=== PATIENT | male | born 1960 | race Caucasian/White ===

== ENCOUNTER 2017-08-18 10:32 | Emergency (ER) | payer SELFPAY ==
[2017-08-18 10:38] VITALS: BP 158/89; PULSE 92; RESP 20; TEMP 99.9; O2SAT 97
[2017-08-18] MEDS ORDERED: HYDR-3580 PO (10:43)
[2017-08-18] MEDS ORDERED: METF1000 PO (10:43)
[2017-08-18] MEDS ORDERED: LEVO100T5 PO (10:43)
[2017-08-18] MEDS ORDERED: DOXY100C PO (10:43)
[2017-08-18 10:58] VITALS: BP 137/75; PULSE 91; RESP 18; O2SAT 95
[2017-08-18] MEDS ORDERED: VANCOMYCIN INJ 1,000 MG in SODIUM CHLOR 0.9% 250 ML INJ 250 ML IV STA (11:25)
[2017-08-18] MEDS ORDERED: PIPERACIL-TAZO 4.5 GM PREMIX 100 ML IV STA (11:25)
[2017-08-18] MEDS ORDERED: ONDANSETRON HCL 4 MG/2 ML VIAL IV PUSH ONE (11:30)
[2017-08-18] MEDS ORDERED: MORPHINE SULFATE 2 MG/ML SYRINGE IV PUSH ONE (11:30)
--- NOTE | 2017-08-18 11:36 | PD ---
HPI Chief Complaint: Skin Problem Time Seen by Provider: 11:20 Travel History International Travel<30 days: No Contact w/Intl Traveler<30days: No Traveled to known affect area: No History of Present Illness HPI Patient comes emergency department complaining of worsening abscess over his thoracic spine. Patient reports that after this began approximately a week ago. Patient reports he went to urgent care 2 days ago had an I&D was started on doxycycline and Superior. Patient states he went back today for recheck and was sent to the emergency department for further treatment and evaluation. Patient reports temperature at home 99.9. Pain is throbbing/pressure pain over the abscess that is worse palpation. Denies anything making it better. Denies any radiation of pain. Severity moderate. PFSH Past Medical History Diabetes: Yes Patient Takes Glucophage: Yes Thyroid Disease: Yes (HYPO) Tetanus Vaccination: < 5 Years Past Surgical History Other Surgery: Yes (LEFT STEAL PLATE TO ARM, SCREWS/RODS LEFT ARM) Social History Alcohol Use: Yes Tobacco Use: Yes Substance Use: No Allergies-Medications (Allergen,Severity, Reaction): Coded Allergies: No Known Allergies (Unverified , 08/18/17) Reported Meds & Prescriptions Reported Meds & Active Scripts Active Bactrim DS (Sulfamethoxazole-Trimethoprim) 800-160 Mg Tab 1 Tab PO BID Reported Hydrocodone-Acetamin 7.5-325 (Hydrocodone/Acetaminophen) 7.5 Mg-325 Mg Tablet 1 Tab PO Q6HR PRN Levothyroxine (Levothyroxine Sodium) 100 Mcg Tab 100 Mcg PO DAILY Doxycycline Hyclate 100 Mg Cap 100 Mg PO BID Metformin (Metformin HCl) 1,000 Mg Tab 1,000 Mg PO BIDPC Review of Systems Except as stated in HPI: all other systems reviewed are Neg Physical Exam Narrative GENERAL: Well-developed, overly nourished, in no acute distress, and non-ill appearing. SKIN: Approximately 8 cm x 8 cm cellulitis with abscess area noted over the midthoracic spine with scant drainage noted. Is febrile, tender, erythematous, and fluctuation is noted. There is no crepitus. HEAD: Atraumatic. Normocephalic. EYES: Pupils equal and round. EOMI. No scleral icterus. No injection or drainage. ENT: No nasal bleeding or discharge. Mucous membranes pink and moist. NECK: Trachea midline. Supple. No nuclear rigidity. CARDIOVASCULAR: Regular rate and rhythm. No murmur appreciated. RESPIRATORY: No accessory muscle use. No respiratory distress. Clear to auscultation. Breath sounds equal bilaterally. MUSCULOSKELETAL: No obvious deformities. No clubbing. No cyanosis. No edema. Full range of motion. NEUROLOGICAL: Awake and alert. No obvious cranial nerve deficits. Motor grossly within normal limits. Normal speech. PSYCHIATRIC: Appropriate mood and affect; insight and judgment normal. Data Data Last Documented VS Vital Signs Date Time Temp Pulse Resp B/P (MAP) Pulse Ox O2 Delivery O2 Flow Rate FiO2 08/18/17 14:49 08/18/17 10:58 91 18 95 Room Air 08/18/17 10:38 99.9 Orders Orders Complete Blood Count With Diff (08/18/17 11:25) Comprehensive Metabolic Panel (08/18/17 11:25) Prothrombin Time / Inr (Pt) (08/18/17 11:25) Act Partial Throm Time (Ptt) (08/18/17 11:25) Lactic Acid Sepsis Protocol (08/18/17 11:25) Blood Culture (08/18/17 11:25) Wound Culture And Gram Stain (08/18/17 11:25) Ecg Monitoring (08/18/17 11:25) Iv Access Insert/Monitor (08/18/17 11:25) Oximetry (08/18/17 11:25) Piperacil-Tazo 4.5 Gm Premix (Zosyn 4.5 (08/18/17 11:25) Vancomycin Inj (Vancomycin Inj) (08/18/17 11:25) Us Soft Tissue (08/18/17 ) Ondansetron Inj (Zofran Inj) (08/18/17 11:30) Morphine Inj (Morphine Inj) (08/18/17 11:30) Morphine Inj (Morphine Inj) (08/18/17 13:15) Lidocai-Epi 1%-1:100,000 Inj (Xylocaine- (08/18/17 13:15) Ed Discharge Order (08/18/17 13:48) Wound Culture And Gram Stain (08/18/17 13:48) Labs Laboratory Tests Test 08/18/17 12:02 08/18/17 12:07 White Blood Count 15.3 TH/MM3 Red Blood Count 4.43 MIL/MM3 Hemoglobin 13.5 GM/DL Hematocrit 38.7 % Mean Corpuscular Volume 87.3 FL Mean Corpuscular Hemoglobin 30.5 PG Mean Corpuscular Hemoglobin Concent 34.9 % Red Cell Distribution Width 13.0 % Platelet Count 324 TH/MM3 Mean Platelet Volume 8.0 FL Neutrophils (%) (Auto) 79.7 % Lymphocytes (%) (Auto) 9.7 % Monocytes (%) (Auto) 9.5 % Eosinophils (%) (Auto) 0.7 % Basophils (%) (Auto) 0.4 % Neutrophils # (Auto) 12.2 TH/MM3 Lymphocytes # (Auto) 1.5 TH/MM3 Monocytes # (Auto) 1.5 TH/MM3 Eosinophils # (Auto) 0.1 TH/MM3 Basophils # (Auto) 0.1 TH/MM3 CBC Comment DIFF FINAL Differential Comment Lactic Acid Level 1.7 mmol/L Prothrombin Time 11.7 SEC Prothromb Time International Ratio 1.2 RATIO Activated Partial Thromboplast Time 31.2 SEC Blood Urea Nitrogen 13 MG/DL Creatinine 0.72 MG/DL Random Glucose 253 MG/DL Total Protein 7.2 GM/DL Albumin 2.8 GM/DL Calcium Level 8.9 MG/DL Alkaline Phosphatase 74 U/L Aspartate Amino Transf (AST/SGOT) 16 U/L Alanine Aminotransferase (ALT/SGPT) 31 U/L Total Bilirubin 0.6 MG/DL Sodium Level 133 MEQ/L Potassium Level 3.7 MEQ/L Chloride Level 95 MEQ/L Carbon Dioxide Level 29.1 MEQ/L Anion Gap 9 MEQ/L Estimat Glomerular Filtration Rate 112 ML/MIN [facility] Medical Decision Making Medical Screen Exam Complete: Yes Emergency Medical Condition: Yes Interpretation(s) Last Impressions Soft Tissue Ultrasound 08/18/17 0000 Signed Impressions: Service Date/Time: August 11:36 - CONCLUSION: Complex collection consistent with the known abscess. Syd Chou MD Differential Diagnosis Abscess, cellulitis, failed outpatient therapy, folliculitis, infected sebaceous cyst Narrative Course There is no evidence of necrotizing fasciitis at this time. The patient will be discharged on antibiotics. The patient was given signs and symptoms warnings for worsening infection, such as spreading of redness, increasing pain, and/or swelling, associated heat, or fever or feels worse, and instructed to return immediately if these signs or symptoms worsen. The patient is to return in 2 days for recheck. Sooner if worsens or as needed. The patient agrees with plan. Patient in no obvious distress upon re-evaluation. All pertinent laboratory/ Radiology result(s) discussed with patient/family. Patient was offered admission but has declined. Discussed patient with Dr. Delgadillo prior discharge, who is in agreement with plan of care and disposition. Patient was asked if they wanted to speak to my attending, which the patient did not wish to do at this time. Any questions/concerns in reference to patient diagnosis/ condition discussed and clarified prior to patient's discharge. Reinforced sheer importance of close follow up with patient's primary physician or primary care clinic and return here in 2 days for recheck. Instructed patient to return to ED immediately, if symptoms return/worsen. Patient showed understanding of above instructions. Further instructions and recommendations were detailed in discharge paperwork. Patient ambulated without difficulty out of ED at discharge. Procedures Procedure Narrative INCISION AND DRAINAGE OF ABSCESS: Verbal consent was obtained. The area was prepped. A subcutaneous wheal of 1% Xylocaine with epi with a total number 2 mL was used to anesthetize the area. The area was properly anesthetized. A number 11 scalpel was used to make a 1-cm incision across the area of the abscess. The abscess was drained and irrigated with normal saline. Quarter inch iodoform packing was placed in the wound. Sterile dressing applied by nurse. Patient tolerated procedure well. Patient advised to return here in 2 days to have packing removed and wound rechecked. Patient verbalized understanding. Diagnosis Primary Impression: Cellulitis and abscess of trunk Patient Instructions: Abscess (GEN), Abscess Incision and Drainage (DC), Cellulitis (ED), General Instructions Additional Instructions: Follow-up with your primary care physician or return here in 2 days for recheck. Take all medication as prescribed today along with doxycycline and hydrocodone you were previously prescribed. Apply warm compresses to affected area to continue facilitating drainage. Return to the emergency department if symptoms get worse. Med/Other Pt SpecificInfo: Prescription(s) given Scripts Sulfamethoxazole-Trimethoprim (Bactrim DS) 800-160 Mg Tab 1 TAB PO BID for Infection, #20 TAB 0 Refills Prov: Juan C Delgadillo MD 08/18/17 Disposition: DISCHARGE HOME Condition: Stable Michael Thomas August 18, 2017 11:36
--- NOTE | 2017-08-18 12:12 | RADRPT ---
EXAM DATE/TIME: 08/18/2017 11:36 [facility] COMPARISON: No previous studies available for comparison. INDICATIONS : Patient with back pain, redness and swelling. Patient is status post drain placement yesterday.. MEDICAL HISTORY : Hypothyroidism. Diabetes. SURGICAL HISTORY : Left arm surgery. ENCOUNTER: Initial ACUITY: 3 days PAIN SCORE: 8/10 LOCATION: Back AREA EVALUATED: Center back. FINDINGS: A targeted ultrasound examination was performed along the center of the back in the area of clinical concern. There is a complex hypoechoic collection measuring 2.5 x 2.1 x 1.9 cm. A this demonstrated n o color flow. There is cystic and hyperechoic areas. CONCLUSION: Complex collection consistent with the known abscess. Syd Chou MD on August 18, 2017 at 12:07 Board Certified Radiologist. This report was verified electronically.
[2017-08-18 12:35] LABS: AUTOMATED NEUTROPHIL # 12.2 TH/MM3 (1.8-7.7); BASOPHIL # 0.1 TH/MM3 (0-0.2); BASOPHIL % 0.4 % (0.0-2.0); EOSINOPHIL # 0.1 TH/MM3 (0-0.4); EOSINOPHIL % 0.7 % (0.0-4.0); HEMATOCRIT 38.7 % (39.0-51.0); HEMOGLOBIN 13.5 GM/DL (13.0-17.0); LYMPH % 9.7 % (9.0-44.0); LYMPHOCYTE # 1.5 TH/MM3 (1.0-4.8); MEAN CELL VOLUME 87.3 FL (80.0-100.0); MEAN CORPUSCULAR HEMOGLOBIN 30.5 PG (27.0-34.0); MEAN CORPUSCULAR HGB CONC 34.9 % (32.0-36.0); MONO % 9.5 % (0.0-8.0); MONOCYTE # 1.5 TH/MM3 (0-0.9); NEUT % 79.7 % (16.0-70.0); PLATELET COUNT 324 TH/MM3 (150-450); RED BLOOD COUNT 4.43 MIL/MM3 (4.50-5.90); WHITE BLOOD COUNT 15.3 TH/MM3 (4.0-11.0)
[2017-08-18 12:43] LABS: INTERNATIONAL NORMALIZED RATIO 1.2 RATIO; PROTHROMBIN TIME - PATIENT 11.7 SEC (9.8-11.6)
[2017-08-18 12:50] LABS: ALBUMIN 2.8 GM/DL (3.4-5.0); ALT (GPT) 31 U/L (12-78); AST (GOT) 16 U/L (15-37); BICARBONATE 29.1 MEQ/L (21.0-32.0); BLOOD UREA NITROGEN 13 MG/DL (7-18); CALCIUM 8.9 MG/DL (8.5-10.1); CHLORIDE 95 MEQ/L (98-107); CREATININE 0.72 MG/DL (0.60-1.30); GLOMERULAR FILTRATION RATE 112 ML/MIN (>89); GLUCOSE,RANDOM 253 MG/DL (74-106); SODIUM (NA) 133 MEQ/L (136-145)
[2017-08-18 12:51] LABS: ALKALINE PHOSPHATASE 74 U/L (45-117); TOTAL BILIRUBIN ADULT 0.6 MG/DL (0.2-1.0); TOTAL PROTEIN 7.2 GM/DL (6.4-8.2)
[2017-08-18] MEDS ORDERED: MORPHINE SULFATE 4 MG/ML INJ IV PUSH ONE (13:15)
[2017-08-18] MEDS ORDERED: LIDOCAINE 1%/EPINEPHrine 1:100,000 SOLN 20 ML VIAL INFIL ONE (13:15)
[2017-08-18] MEDS ORDERED: BACT800T5 PO (13:49)
== END 2017-08-18 15:09 | disposition home or self-care (01) ==
LOC: NEPE 10:32
DX: L02.212 Cutaneous abscess of back [any part, except buttock and flank] (principal); E03.9 Hypothyroidism, unspecified; E11.9 Type 2 diabetes mellitus without complications; Z72.0 Tobacco use; Z79.84 Long term (current) use of oral hypoglycemic drugs
CPT/HCPCS: 10060; 76999; 80053; 83605; 85025; 85610; 85730; 87040; 87070; 87185; 96365; 96368; 96375; 96376; 99284; J2270; J2405; J2543; J3370; J7050; 87205

== ENCOUNTER 2017-08-20 09:53 | Emergency (ER) | payer SELFPAY ==
[~2017-08-20] VITALS: Ht 177.8 cm; Wt 90.0 kg
[~2017-08-20 09:53] MED LIST: BACT800T5 PO; DOXY100C PO; HYDR-3580 PO; LEVO100T5 PO; METF1000 PO
[2017-08-20 09:55] VITALS: BP 173/73; PULSE 75; RESP 16; TEMP 97.8; O2SAT 100
[2017-08-20] MEDS ORDERED: SODIUM CHLOR 0.9% 1000 ML INJ 1,000 ML IV SCH (10:06)
--- NOTE | 2017-08-20 10:14 | PD ---
HPI Chief Complaint: Wound/Suture/Staple Re-Check Time Seen by Provider: 09:57 Travel History International Travel<30 days: No Contact w/Intl Traveler<30days: No Traveled to known affect area: No History of Present Illness HPI 57-year-old male arrives to the ER with a wound recheck. He was seen in urgent care facility 3 days ago. He was seen here yesterday and ultrasound was done revealing a back abscess. The abscess was drained at the bedside which was very uncomfortable for the patient. He believes the size of the wound has improved between now and yesterday. He reports persistent pain. No fever. Compliance with Bactrim and doxycycline reported. PFSH Past Medical History Diabetes: Yes Thyroid Disease: Yes (HYPO) Past Surgical History Other Surgery: Yes (LEFT STEAL PLATE TO ARM, SCREWS/RODS LEFT ARM) Social History Alcohol Use: Yes Tobacco Use: Yes Substance Use: No Allergies-Medications (Allergen,Severity, Reaction): Coded Allergies: No Known Allergies (Unverified , 08/20/17) Reported Meds & Prescriptions Reported Meds & Active Scripts Active Clindamycin (Clindamycin HCl) 150 Mg Cap 450 Mg PO Q8HR 10 Days Flagyl (Metronidazole) 500 Mg Tab 500 Mg PO TID 10 Days Bactrim DS (Sulfamethoxazole-Trimethoprim) 800-160 Mg Tab 1 Tab PO BID Reported Hydrocodone-Acetamin 7.5-325 (Hydrocodone/Acetaminophen) 7.5 Mg-325 Mg Tablet 1 Tab PO Q6HR PRN Levothyroxine (Levothyroxine Sodium) 100 Mcg Tab 100 Mcg PO DAILY Doxycycline Hyclate 100 Mg Cap 100 Mg PO BID Metformin (Metformin HCl) 1,000 Mg Tab 1,000 Mg PO BIDPC Review of Systems Except as stated in HPI: all other systems reviewed are Neg General / Constitutional: No: Fever Physical Exam Narrative GENERAL: 57 yo M, WNWD, mild distress 2/2 pain and or anxiety SKIN: Warm and dry. 10cm abscess midline thoracic back diffusely fluctuant with marked tenderness. Adjacent cellulitis present. HEAD: Normocephalic. EYES: No scleral icterus. No injection or drainage. NECK: Supple, trachea midline. No JVD or lymphadenopathy. CARDIOVASCULAR: Regular rate and rhythm without murmurs, gallops, or rubs. RESPIRATORY: Breath sounds equal bilaterally. No accessory muscle use. GASTROINTESTINAL: Abdomen soft, non-tender, nondistended. MUSCULOSKELETAL: No cyanosis, or edema. BACK: Nontender without obvious deformity. No CVA tenderness. Data Data Last Documented VS Vital Signs Date Time Temp Pulse Resp B/P (MAP) Pulse Ox O2 Delivery O2 Flow Rate FiO2 08/20/17 10:15 99 Room Air 08/20/17 09:55 97.8 75 16 173/73 (106) Orders Orders Iv Access Insert/Monitor (08/20/17 10:06) Ecg Monitoring (08/20/17 10:06) Oximetry (08/20/17 10:06) Sodium Chlor 0.9% 1000 Ml Inj (Ns 1000 M (08/20/17 10:06) Sodium Chloride 0.9% Flush (Ns Flush) (08/20/17 10:15) Propofol 200 Mg/20 Ml Inj (Diprivan 200 (08/20/17 10:15) Lidocai-Epi 1%-1:100,000 Inj (Xylocaine- (08/20/17 10:15) Basic Metabolic Panel (Bmp) (08/20/17 10:14) Complete Blood Count With Diff (08/20/17 10:14) Wound Culture And Gram Stain (08/20/17 10:14) Metronidazole 500 Mg Inj (Flagyl 500 Mg (08/20/17 10:15) Clindamycin 900 Mg/Ns Premix (Cleocin 90 (08/20/17 10:30) Labs Laboratory Tests Test 08/20/17 10:20 White Blood Count 10.7 TH/MM3 Red Blood Count 4.50 MIL/MM3 Hemoglobin 13.8 GM/DL Hematocrit 39.5 % Mean Corpuscular Volume 87.8 FL Mean Corpuscular Hemoglobin 30.7 PG Mean Corpuscular Hemoglobin Concent 35.0 % Red Cell Distribution Width 13.0 % Platelet Count 360 TH/MM3 Mean Platelet Volume 8.1 FL Neutrophils (%) (Auto) 70.2 % Lymphocytes (%) (Auto) 19.3 % Monocytes (%) (Auto) 7.6 % Eosinophils (%) (Auto) 2.1 % Basophils (%) (Auto) 0.8 % Neutrophils # (Auto) 7.5 TH/MM3 Lymphocytes # (Auto) 2.1 TH/MM3 Monocytes # (Auto) 0.8 TH/MM3 Eosinophils # (Auto) 0.2 TH/MM3 Basophils # (Auto) 0.1 TH/MM3 CBC Comment DIFF FINAL Differential Comment Blood Urea Nitrogen 11 MG/DL Creatinine 0.78 MG/DL Random Glucose 293 MG/DL Calcium Level 9.4 MG/DL Sodium Level 134 MEQ/L Potassium Level 4.0 MEQ/L Chloride Level 96 MEQ/L Carbon Dioxide Level 29.8 MEQ/L Anion Gap 8 MEQ/L Estimat Glomerular Filtration Rate 102 ML/MIN MDM Medical Decision Making Medical Screen Exam Complete: Yes Emergency Medical Condition: Yes Medical Record Reviewed: Yes Differential Diagnosis Abscess, cellulitis, deep tissue wound infection Narrative Course CBC & BMP Diagram 08/20/17 10:20 I&D performed at the bedside. The wound was quite deep. A large incision was required. The patient refused to stay in the hospital. I do not feel entirely comfortable discharging him however he has verbalized agreement to return tomorrow for a wound check. He also verbalized understanding that I was uncomfortable with the discharge. Pt's was present during the conversation which happened at 1110AM. Because he has agreed to return tomorrow for a wound check we can discharge without doing an AMA. The patient blood cultures grew anaerobes and gram-positive cocci. Antibiotics switched to Flagyl and clindamycin with first dose of both given IV here. Strict interval return precautions discussed. Procedures Procedure Narrative After the risks and benefits were discussed the following procedure was performed: MODERATE SEDATION: The patient was placed on a phototypesetting equipment monitor and pulse oximetry. An ambu bag and suction was immediately available at bedside. The patient was monitored by the nurse. Oxygen saturation , heart rate and blood pressure were monitored. Procedural sedation was acheived using propofol. The patient was observed until awake and alert. Procedural Sedation time in attendance was 20 minutes. After the risks and benefits were discussed the following procedure was performed: INCISION AND DRAINAGE OF ABSCESS: The area was prepped and was sterilely draped. A subcutaneous wheal of 1% Xylocaine with a total number 7 mL was used to anesthetize the area. The area was properly anesthetized. A number 11 scalpel was used to make a 2 -cm incision across the area of the abscess. Cultures were obtained. The abscess was drained an irrigated with normal saline. Quarter inch iodoform packing was placed in the wound. Sterile dressing applied. Diagnosis Primary Impression: Cellulitis and abscess of trunk Additional Impression: Hyperglycemia Referrals: Primary Care Physician 2 days Additional Instructions: Please return to the ER tomorrow without fail for a wound check. If you arrive earlier in the day the wait will be much shorter. Your blood sugar is elevated at 293. Please be sure to keep tight glucose control while your infection is healing. Med/Other Pt SpecificInfo: Prescription(s) given Scripts Clindamycin (Clindamycin) 150 Mg Cap 450 MG PO Q8HR for Infection for 10 Days, CAP 0 Refills Prov: Héctor Hayes MD 08/20/17 Metronidazole (Flagyl) 500 Mg Tab 500 MG PO TID for Infection for 10 Days, TAB 0 Refills Prov: Héctor Hayes MD 08/20/17 Disposition: 01 DISCHARGE HOME Condition: Stable Héctor Hayes MD August 20, 2017 10:13
[2017-08-20 10:15] VITALS: O2SAT 99
[2017-08-20] MEDS ORDERED: PROPOFOL 200 MG/20 ML AMP IV ONE (10:15)
[2017-08-20] MEDS ORDERED: CLINDAMYCIN INJ 900 MG in SODIUM CHLORIDE 0.9% INJ 100 ML IV ONE (10:15)
[2017-08-20] MEDS ORDERED: LIDOCAINE 1%/EPINEPHrine 1:100,000 SOLN 20 ML VIAL INFIL ONE (10:15)
[2017-08-20] MEDS ORDERED: metroNIDAZOLE 500 MG INJ 100 ML IV ONE (10:15)
[2017-08-20] MEDS ORDERED: SODIUM CHLORIDE 0.9% FLUSH 10 ML FLUSH IV FLUSH PRN (10:15)
[2017-08-20] MEDS ORDERED: METR-1 PO (10:18)
[2017-08-20] MEDS ORDERED: CLIN150C14 PO (10:18)
[2017-08-20] MEDS ORDERED: CLINDAMYCIN 900 MG/NS PREMIX 50 ML IV ONE (10:30)
[2017-08-20 11:04] LABS: AUTOMATED NEUTROPHIL # 7.5 TH/MM3 (1.8-7.7); BASOPHIL # 0.1 TH/MM3 (0-0.2); BASOPHIL % 0.8 % (0.0-2.0); EOSINOPHIL # 0.2 TH/MM3 (0-0.4); EOSINOPHIL % 2.1 % (0.0-4.0); HEMATOCRIT 39.5 % (39.0-51.0); HEMOGLOBIN 13.8 GM/DL (13.0-17.0); LYMPH % 19.3 % (9.0-44.0); LYMPHOCYTE # 2.1 TH/MM3 (1.0-4.8); MEAN CELL VOLUME 87.8 FL (80.0-100.0); MEAN CORPUSCULAR HEMOGLOBIN 30.7 PG (27.0-34.0); MEAN PLATELET VOLUME 8.1 FL (7.0-11.0); MONO % 7.6 % (0.0-8.0); MONOCYTE # 0.8 TH/MM3 (0-0.9); NEUT % 70.2 % (16.0-70.0); PLATELET COUNT 360 TH/MM3 (150-450); WHITE BLOOD COUNT 10.7 TH/MM3 (4.0-11.0)
[2017-08-20 11:32] LABS: BICARBONATE 29.8 MEQ/L (21.0-32.0); CALCIUM 9.4 MG/DL (8.5-10.1); CREATININE 0.78 MG/DL (0.60-1.30)
[2017-08-20 11:43] VITALS: BP 138/78
[2017-08-20] MEDS ORDERED: HYDR-3580 PO (11:55)
[2017-08-20 12:48] VITALS: O2SAT 99
== END 2017-08-20 12:00 | disposition home or self-care (01) ==
LOC: NEPD 09:53
DX: L02.212 Cutaneous abscess of back [any part, except buttock and flank] (principal); L03.312 Cellulitis of back [any part except buttock and flank]; E11.65 Type 2 diabetes mellitus with hyperglycemia; E03.9 Hypothyroidism, unspecified; Z72.0 Tobacco use; Z79.899 Other long term (current) drug therapy
CPT/HCPCS: 10060; 80048; 85025; 96365; 96366; 96375; 99152; 99284; J7030

== ENCOUNTER 2017-08-21 11:51 | Emergency (ER) | payer SELFPAY ==
[~2017-08-21 11:51] MED LIST changes: +CLIN150C14 PO; +METR-1 PO
[2017-08-21 11:52] VITALS: BP 165/72; PULSE 72; RESP 18; TEMP 98.3; O2SAT 98
--- NOTE | 2017-08-21 12:00 | PD ---
HPI Chief Complaint: Wound/Suture/Staple Re-Check Time Seen by Provider: 11:59 Travel History International Travel<30 days: No Contact w/Intl Traveler<30days: No Traveled to known affect area: No History of Present Illness HPI 57-year-old male came to the emergency for wound recheck for the abscess on his back. Patient is visiting the ER for the third time. He was diagnosed with a large abscess on the back that was I&D. He came back yesterday since he was not feeling better and needed to be on indeed some more. At that time the recommendation was for him to be admitted for IV antibiotic. His wound culture was growing anaerobic gram-positive cocci. Patient had refused to be admitted and was discharged home on ciprofloxacin and Flagyl and asked to return today for wound check. Patient says he is feeling 110% better. He is a diabetic and yesterday sugar was in 300s. Patient says today he did not check his sugar. Vital signs are stable. He is taking the antibiotics like he supposed to he says. He has been applying warm compress. [facility] Past Medical History Narrative Medical List of his past medical, surgical, social and family history reviewed from the nursing note. Diabetes: Yes Diminished Hearing: No Immunizations Current: Yes Thyroid Disease: Yes (HYPO) Past Surgical History Other Surgery: Yes (LEFT STEAL PLATE TO ARM, SCREWS/RODS LEFT ARM) Social History Alcohol Use: Yes Tobacco Use: Yes (1/2 PPD) Substance Use: No Allergies-Medications (Allergen,Severity, Reaction): Coded Allergies: No Known Allergies (Unverified , 08/20/17) Comments No known drug allergies per Reported Meds & Prescriptions Reported Meds & Active Scripts Active Hydrocodone-Acetamin 7.5-325 (Hydrocodone/Acetaminophen) 7.5 Mg-325 Mg Tablet 1 Tab PO Q6HR PRN Clindamycin (Clindamycin HCl) 150 Mg Cap 450 Mg PO Q8HR 10 Days Flagyl (Metronidazole) 500 Mg Tab 500 Mg PO TID 10 Days Bactrim DS (Sulfamethoxazole-Trimethoprim) 800-160 Mg Tab 1 Tab PO BID Reported Levothyroxine (Levothyroxine Sodium) 100 Mcg Tab 100 Mcg PO DAILY Doxycycline Hyclate 100 Mg Cap 100 Mg PO BID Metformin (Metformin HCl) 1,000 Mg Tab 1,000 Mg PO BIDPC Narrative Medication List of his home medications reviewed from the nursing note Review of Systems Except as stated in HPI: all other systems reviewed are Neg Physical Exam Narrative GENERAL: Awake, alert, no obvious distress SKIN: Focused skin assessment warm/dry. Purplish discoloration surrounding the abscess I&D location. Packing material is noticed to be sticking out of the abscess cavity like it supposed to be. There is some surrounding tenderness but no significant drainage. HEAD: Atraumatic. Normocephalic. EYES: Pupils equal and round. No scleral icterus. No injection or drainage. ENT: No nasal bleeding or discharge. Mucous membranes pink and moist. NECK: Trachea midline. No JVD. CARDIOVASCULAR: Regular rate and rhythm. No murmur appreciated. RESPIRATORY: No accessory muscle use. Clear to auscultation. Breath sounds equal bilaterally. GASTROINTESTINAL: Abdomen soft, non-tender, nondistended. Hepatic and splenic margins not palpable. MUSCULOSKELETAL: No obvious deformities. No clubbing. No cyanosis. No edema. NEUROLOGICAL: Awake and alert. No obvious cranial nerve deficits. Motor grossly within normal limits. Normal speech. PSYCHIATRIC: Appropriate mood and affect; insight and judgment normal. Data Data Last Documented VS Orders Orders Ed Discharge Order (08/21/17 12:09) MDM Medical Decision Making Medical Screen Exam Complete: Yes Emergency Medical Condition: Yes Medical Record Reviewed: Yes Differential Diagnosis Abscess I and D, wound reached Narrative Course 12:14 PM patient refused to get his blood sugar checked here. Since the wound appears to be looking better and patient is taking his antibiotic I am comfortable discharging him home. Patient wants to follow-up with his primary care in in a day or 2 to get the packing taken out and repacked. I will discharge him home Procedures EKG Prior to Arrival: No Diagnosis Primary Impression: Back abscess Additional Impression: Wound check, abscess Referrals: Primary Care Physician Additional Instructions: You need to get the packing taken out in another 24-48 hours. Continue taking the antibiotic as per the directions and applying warm compress. You can go to your primary care or return to the emergency room to get the packing changed. Return to the ER if condition worsens or any other new concerns. He refused to get your blood sugar checked today. If your blood sugar is high you need to take your medications like he supposed to and if it continues to stay high need to contact your primary care. Your wound cavity should be repacked at the next doctor's appointment one more time. Med/Other Pt SpecificInfo: No Change to Meds Disposition: 01 DISCHARGE HOME Condition: Stable Julia Loving MD August 21, 2017 12:00
== END 2017-08-21 12:19 | disposition home or self-care (01) ==
LOC: NEPD 11:51
DX: L02.212 Cutaneous abscess of back [any part, except buttock and flank] (principal); F17.200 Nicotine dependence, unspecified, uncomplicated; E11.9 Type 2 diabetes mellitus without complications; Z79.84 Long term (current) use of oral hypoglycemic drugs
CPT/HCPCS: 99281